=== PATIENT | female | born 1980 ===

== ENCOUNTER 2020-06-18 02:10 | Outpatient (CLI) | payer MEDICAID ==
[2020-06-18] MEDS ORDERED: LACTATED RINGERS 1,000 ML IV ONE (03:09)
[2020-06-18 03:39] LABS: Bacteria,Urine 1+ /HPF (Negative); Bilirubin,Urine NEG (Negative); Blood,Urine SM (Negative); Color,Urine Yellow (Yellow); Mucus,Urine FEW /HPF; Urobilinogen,Urine < 2.0 mg/dL (<2.0)
[2020-06-18 04:18] LABS: Hematocrit 30.1 % (30.3-42.9); Hemoglobin 10.4 gm/dl (10.1-14.3); Mean Corpuscular HGB Conc 35 % (30-34); Mean Corpuscular Volume 84 fl (79-97); Platelet Count 292 K/mm3 (140-440); Red Blood Count 3.58 M/mm3 (3.65-5.03); Red Cell Distribution Width 14.3 % (13.2-15.2)
[2020-06-18 04:26] LABS: Amphetamine Screen,Urine PRESUMPTIVE POSITIVE; Benzodiazepines Screen,Urine PRESUMPTIVE NEGATIVE; Cannabinoid Screen,Urine PRESUMPTIVE NEGATIVE; Cocaine Screen,Urine PRESUMPTIVE NEGATIVE; Methadone Screen,Urine PRESUMPTIVE NEGATIVE; Opiate Screen,Urine PRESUMPTIVE NEGATIVE
[2020-06-18 04:40] LABS: Alanine Aminotransferase 8 units/L (7-56)
[2020-06-18 05:26] VITALS: BP 114/72
[2020-06-18 05:33] LABS: Uric Acid 4.1 mg/dL (3.5-7.6)
== END 2020-06-18 06:15 | disposition home or self-care (01) ==
LOC: TRG 02:10 → APU 02:11 → TRG 06:15
PROVIDERS: ATTEND Obstetrics & Gynecology
DX: O26.893 Other specified pregnancy related conditions, third trimester (principal); R10.9 Unspecified abdominal pain; Z3A.31 31 weeks gestation of pregnancy
CPT/HCPCS: 36415; 59025; 80307; 81001; 82565; 82962; 83615; 84450; 84460; 84550; 85027

== ENCOUNTER 2020-06-22 23:44 | Outpatient (CLI) | payer MEDICAID ==
[2020-06-23] MEDS ORDERED: INSULIN REGULAR, HUMAN 100 UNIT/ML 3ML VIAL SUB-Q ONE (01:58)
[2020-06-23 02:06] VITALS: BP 103/59
== END 2020-06-23 03:00 | disposition home or self-care (01) ==
LOC: TRG 23:44 → APU 06-23 → TRG 06-23 03:00
PROVIDERS: ATTEND Obstetrics & Gynecology
DX: O13.3 Gestational [pregnancy-induced] hypertension without significant proteinuria, third trimester (principal); Z3A.35 35 weeks gestation of pregnancy
CPT/HCPCS: 59025; 82962; A9270; J1815